=== PATIENT | male | born 1970 | race Caucasian/White ===

== ENCOUNTER 2024-01-26 07:38 | Day surgery (SDC) | payer OTHER, SELFPAY ==
[2024-01-26 07:59] VITALS: BP 144/86; PULSE 68; RESP 16; TEMP 36.7; O2SAT 100; BMI 27.5
[2024-01-26] MEDS: Lactated Ringers 1,000 ML 15 ML IV (08:05)
--- NOTE | 2024-01-26 08:45 | COLBX_PTH ---
PATIENT: SHILPI HODGSON LOC: EN U#:[id number] AGE/SX: 53/M ROOM: RE01/26/[address]: Dr. Juan Estrada DO : 1970 BED: DIS: 01/26/2024 SPEC #: [id number] RECD: 01/26/24 10:09 STATUS: MISTI REJoel #: [id number] BERTHA: 01/26/24 08:[address]: Juan Estrada DEPT: SURGICAL PATHOLOGY RECD BY: Mary Robertson ENTERED: 01/26/24 11:49 SP TYPE: COLON BX OTHR DR: Dr. Jose Jackson MD Tissues: Cecum, NOS Procedures: Surgery Specimen Level IV HEADER OPERATION: Colonoscopy with polyp biopsy PRE-OP DIAGNOSIS: Screening TISSUE SUBMITTED: Cecal polyp MICROSCOPIC DIAGNOSIS Cecal polyp, biopsy: Polypoid fragment of bening colonic mucosa. See comment. CATHY/ 01/27/24 COMMENT Neither hyperplastic nor adenomatous change is identified. Clinical correlation is suggested. MICROSCOPIC DESCRIPTION Slides are reviewed. GROSS DESCRIPTION Received in fixative is one container labeled with the patient's name and designated Cecal polyp. The specimen consists of one irregular fragment of light ramirez soft tissue that measures 0.5 x 0.3 x 0.1 cm. The specimen is totally submitted in one cassette. AM/mr 01/26/24 TC:5 CPT:39681
--- NOTE | 2024-01-26 09:02 | PCM.HP.STD ---
HPI - General General Date of Admission: 01/26/24 Date of Service: 01/26/24 Chief Complaint: Screening colonoscopy HPI Narrative SHILPI HODGSON, is a 53 M who presents today for screening colonoscopy. He has never had a colonoscopy in the past. He has no medical history. He does not take any medicines on a daily basis. Overall is in very good health. [facility] Medical History (Updated 01/23/24 @ 12:09 by Iman Lujan) Alcohol use Arthritis Back pain History of fracture of tibia History of pain when walking Leg cramps Non-smoker Pain Home Medications ibuprofen 200 mg tablet (Advil) 200 mg PO Q6H PRN pain 12/22/23 [History Last Taken Unknown] Allergy/AdvReac Type Severity Reaction Status Date / Time aspirin Allergy Hives Verified 01/26/24 07:58 Penicillins Allergy Hives Verified 01/26/24 07:58 Social History (Updated 12/22/23 @ 15:53 by Angelica Resendiz) household members: other details: Single current occupational status: employed Smoking Status: Never smoker ROS Review of Systems ROS Unobtainable: other Constitutional Constitutional: Denies fatigue, fever(s), poor appetite, weight gain or weight loss ENT HEENT: Denies mouth lesions Cardiovascular Cardiovascular: Denies abdominal bloating, abdominal edema or abdominal pain Respiratory/Chest Respiratory/Chest: Denies change in mental status, change in phlegm color, chest congestion or chest tightness Gastrointestinal Gastrointestinal: Denies belching, bloating, change in bowel habits, change in stool character, chewing difficulty, coffee ground emesis, constipation, cramping, diarrhea, dyspepsia, dysphagia, early satiety, excessive flatus, fecal incontinence, heartburn, hematemesis, hematochezia, hemorrhoids, loose stools, melena, nausea, odynophagia, rectal bleeding, tenesmus, vomiting or weight changes Genitourinary Genitourinary: Denies abdominal discomfort, burning urination or itching Musculoskeletal Musculoskeletal: Reports as per HPI; Denies muscle weakness or myalgias Integumentary Integumentary: Denies jaundice Neurologic Neurologic: Denies lack of coordination or weakness Psychiatric Psychiatric: Denies confusion, depression, memory loss, mood swings, paranoia or suicidal ideation Endocrine Endocrinology: Denies systems reviewed and no addt'l complaints, except as documented Hematologic/Lymphatic Hematologic/Lymphatic: Denies anemia, easy bleeding, easy bruising or lymphadenopathy Allergic/Immunologic Allergic/Immunologic: Denies systems reviewed and no addt'l complaints, except as documented Vital Signs Vital Signs Vital Signs: 01/26/24 07:59 01/26/24 07:59 Temperature 98.0 F Temperature Source Temporal Pulse Rate 68 Respiratory Rate 16 Respiratory Pattern Normal Blood Pressure 144/86 H Blood Pressure Mean 105 Blood Pressure Source Monitor Blood Pressure Position Semi-Fowlers Blood Pressure Location Right Arm Pulse Ox 100 Oxygen Delivery Method Room Air Weight Weight: 181 lb Body Mass Index (BMI) 27.5 Physical Exam Const alert, oriented x3, no apparent distress, healthy appearing and well nourished General Appearance: cooperative, comfortable, well kempt and well developed Orientation / Consciousness: awake and oriented to person HEENT Head and Scalp: normocephalic and atraumatic Face and Sinus: normal facial exam Mouth: oral and palatal mucosa normal Eyes General Eye: normal appearance of both eyes Neck full ROM Lymph Lymphatic: no lymphadenopathy noted Chest inspection of chest normal Resp normal respiratory effort and no use of accessory muscles Cardio regular rate and regular rhythm GI normal to inspection, nondistended, normoactive bowel sounds, soft to palpation, non-tender, non-distended and no masses Auscultation: normoactive bowel sounds Palpation: soft Percussion: normal to percussion Rectal Exam: visual inspection normal and normal sphincter tone no CVA tenderness Back/Spine no CVA tenderness and normal ROM Extremity normal to inspection Peripheral Pulses: Yes pulses 2+ throughout Skin no rashes or lesions noted General Skin Exam: no breakdown, elasticity normal and turgor normal Neuro oriented x3 Motor Exam: strength 5/5 throughout Psych mental status grossly normal Appearance: grossly normal Attitude: calm Activity / Motor Behavior: appropriate eye contact Speech: normal speech Thought Process: normal thought process Thought Content: normal thought content Attention / Concentration: attention grossly intact Memory / Cognition: memory grossly intact Insight: insight good Judgement: judgement good Assessment & Plan Assessment/Plan (1) Encounter for screening for malignant neoplasm of colon: PLAN: He was explained alternatives, risk, benefits including not withstanding bleeding, infection, sepsis, perforation, need for emergent surgery . Have an ASA of 3.
--- NOTE | 2024-01-26 09:25 | OP.COLON_ITS ---
Patient Name: Jose Pierce Procedure Date: 01/26/2024 8:56 AM Date of : 1970 Age: 53 Procedure: Colonoscopy Indications: Screening for colorectal malignant neoplasm Providers: Juan Estrada DO Medicines: Monitored Anesthesia Care Patient Profile: This is a 53 year old male. Refer to note in patient chart for documentation of history and physical. Last Colonoscopy: none. The patient's first colonoscopy is today. Complications: No immediate complications. Procedure: Pre-Anesthesia Assessment: - Prior to the procedure, a History and Physical was performed, and patient medications and allergies were reviewed. The patient is competent. The risks and benefits of the procedure and the sedation options and risks were discussed with the patient. All questions were answered and informed consent was obtained. Patient identification and proposed procedure were verified by the physician in the pre-procedure area. Mental Status Examination: alert and oriented. Airway Examination: normal oropharyngeal airway and neck mobility. Respiratory Examination: clear to auscultation. CV Examination: normal. Prophylactic Antibiotics: The patient does not require prophylactic antibiotics. Prior Anticoagulants: The patient has taken no anticoagulant or antiplatelet agents. ASA Grade Assessment: II - A patient with mild systemic disease. After reviewing the risks and benefits, the patient was deemed in satisfactory condition to undergo the procedure. The anesthesia plan was to use monitored anesthesia care (MAC). Immediately prior to administration of medications, the patient was re-assessed for adequacy to receive sedatives. The heart rate, respiratory rate, oxygen saturations, blood pressure, adequacy of pulmonary ventilation, and response to care were monitored throughout the procedure. The physical status of the patient was re-assessed after the procedure. After I obtained informed consent, the scope was passed under direct vision. Throughout the procedure, the patient's blood pressure, pulse, and oxygen saturations were monitored continuously. The colonoscope was introduced through the anus and advanced to the cecum, identified by appendiceal orifice and ileocecal valve. The colonoscopy was performed without difficulty. The patient tolerated the procedure well. The quality of the bowel preparation was adequate. The ileocecal valve, appendiceal orifice, and rectum were photographed. Scope In: 9:07:04 AM Scope Withdrawal Time 0 hours 7 minutes 59 seconds Scope Out: 9:21:38 AM Total Procedure Duration Time 0 hours 14 minutes 34 seconds Findings: The perianal and digital rectal examinations were normal. A 5 mm polyp was found in the cecum. The polyp was sessile. The polyp was removed with a cold biopsy forceps. Resection and retrieval were complete. Verification of patient identification for the specimen was done. Estimated blood loss was minimal. Two small-mouthed diverticula were found in the recto-sigmoid colon. The exam was otherwise without abnormality on direct and retroflexion views. Impression: - One 5 mm polyp in the cecum, removed with a cold biopsy forceps. Resected and retrieved. - Diverticulosis in the recto-sigmoid colon. - The examination was otherwise normal on direct and retroflexion views. Recommendation: - Discharge patient to home. - Resume previous diet. - Continue present medications. - Await pathology results. - Repeat colonoscopy in 5 years for surveillance. Procedure Code(s): --- Professional --- 01913, Colonoscopy, flexible; with biopsy, single or multiple CPT copyright 2021 [employer]. All rights reserved. The codes documented in this report are preliminary and upon health information coder review may be revised to meet current compliance requirements. Juan Estrada DO 01/26/2024 9:25:22 AM This report has been signed electronically. Number of Addenda: 0 Note Initiated On: 01/26/2024 8:56 AM
--- NOTE | 2024-01-26 09:26 | OP.CCLET_ITS ---
01/26/2024 No Primary Care Physician Re : Colonoscopy procedure for Jose Pierce Dear Care Physician This procedure was performed on January. My impressions and recommendations are as follows: Impressions : - One 5 mm polyp in the cecum, removed with a cold biopsy forceps. Resected and retrieved. - Diverticulosis in the recto-sigmoid colon. - The examination was otherwise normal on direct and retroflexion views. Recommendations : - Discharge patient to home. - Resume previous diet. - Continue present medications. - Await pathology results. - Repeat colonoscopy in 5 years for surveillance. My findings are described in the full procedure note, which is enclosed. If I can be of further assistance, please feel free to contact me at . Sincerely, Juan Estrada, 01/26/2024 9:25:22 AM This report has been signed electronically.
[2024-01-26 09:27] VITALS: BP 107/70; BP 144/86; PULSE 66; RESP 16; TEMP 36.1; O2SAT 100
[2024-01-26 09:30] VITALS: BP 110/83; BP 144/86; PULSE 66; RESP 16; O2SAT 100
[2024-01-26 09:35] VITALS: BP 107/87; BP 144/86; PULSE 65; RESP 16; TEMP 36.4; O2SAT 100
[2024-01-26 09:55] VITALS: BP 144/86
== END 2024-01-26 10:00 | disposition home or self-care (01) ==
LOC: EN 07:42 → AC 07:43
PROVIDERS: PCP Family Medicine; Referring Provider Family Medicine; Visit Provider Internal Medicine Gastroenterology
PROC: 0DJD8ZZ Inspection of Lower Intestinal Tract, Via Natural or Artificial Opening Endoscopic (ICD-10-PCS; CPT 45378; principal; 2024-01-26 08:40)
DX: Z12.11 Encounter for screening for malignant neoplasm of colon (principal); K63.5 Polyp of colon; K57.30 Diverticulosis of large intestine without perforation or abscess without bleeding
CPT/HCPCS: 45380; 88305; J7120